=== PATIENT | female | born 1960 | race Caucasian/White ===

== ENCOUNTER 2023-07-12 14:46 | Emergency (ER) | payer OTHER, SELFPAY ==
[2023-07-12] VITALS (36 sets, daily range): BP systolic 96–222; BP diastolic 53–168; PULSE 110–119; RESP 20; TEMP 36.3; O2SAT 92–98
--- NOTE | ~2023-07-12 | CT_ITS ---
CT of the Abdomen and Pelvis: Indication: Abdominal pain Technique: 2.5 mm axial scans were obtained through the abdomen and pelvis following intravenous adm inistration of 100 cc of Omnipaque 350. Dose reduction technique was used on this scan by utilizing a utomated exposure control and iterative reconstruction technique. The dose-length product (DLP) was 1 379.98 mGy-cm. Findings: Scans through the lung bases are unremarkable. The liver, spleen, pancreas, adrenals and left kidney are within normal limits. Suspected small galls tones present. There is moderate right hydronephrosis, with staghorn type calculus the right renal pe lvis, with multiple additional stones at the right lower pole. No right ureteral stone evident. No ev idence of aortic aneurysm. No lymphadenopathy. No bowel obstruction or bowel wall thickening. There is no evidence to suggest acute appendicitis. Images through the pelvis were performed. Urinary bladder unremarkable. No adnexal mass evident. No a scites. Impression: Large staghorn type calculus of the right renal pelvis with numerous additional right lower pole genny l stones. Moderate right hydronephrosis. No other ureteral stone or ureteral dilatation evident. Reviewed, dictated and finalized at location . Impression: Large staghorn type calculus of the right renal pelvis with numerous additional right lower pole renal stones. Moderate right hydronephrosis. No other ureteral stone or ureteral dilatation e vident.
--- NOTE | 2023-07-12 15:01 | ECG_ITS ---
Measurements Intervals [place] Rate: 112 P: 39 MD: 120 QRS: 14 QRSD: 86 T: 48 QT: 330 QTc: 451 Interpretive Statements SINUS TACHYCARDIA POSSIBLE LEFT ATRIAL ENLARGEMENT DELAYED PRECORDIAL R/S TRANSITION VOLTAGE CRITERIA FOR LVH BORDERLINE ECG NO PREVIOUS ECG AVAILABLE FOR COMPARISON Electronically Signed On 07-12-2023 16:00:31 CDT by Agustín Arevalo D.O.
[2023-07-12 15:04] LABS: Appearance Urine Clear (Clear); Bilirubin Urine Negative (Negative); Color Urine Light Yellow (Yellow); Glucose Urine UA Negative (Negative); Ketones Urine Negative (Negative); Leukocyte Esterase Ur Trace LEU/UL (Negative); Nitrate Urine Negative (Negative); Protein Urine Negative (Negative); Urobilinogen Urine 0.2 mg/dL (0.2-1.0); pH Urine 7.5 (5.0-8.0)
[2023-07-12 15:09] LABS: Blood Urine Trace-Intact (Negative)
[2023-07-12 15:10] LABS: Add Urine Microscopic? YES; Bacteria Urine Trace /hpf; Squamous Epithelial Cell Urine Rare /hpf (Few)
--- NOTE | 2023-07-12 15:14 | ED.GENADULT ---
HPI - General Adult General Chief complaint: Urogenital-Female Stated complaint: possible UTI Time Seen by Provider: 07/12/23 15:01 History of Present Illness HPI narrative: Nesha is a 63F with a PMH of HTN and UTI that presented to the ED with a few days of worsening urinary frequency, suprapubic pain and bilateral flank pain as well as fatigue and nausea. She is very nervous about coming in. She denies chest pain and dyspnea. Related Data Home Medications Medication Instructions Recorded Confirmed No Home Medications 07/12/23 07/12/23 Allergies Allergy/AdvReac Type Severity Reaction Status Date / Time No Known Allergies Allergy Verified 07/12/23 14:58 Review of Systems Review of Systems: All systems reviewed & are unremarkable except as noted in HPI and below Exam Const: General: healthy appearing and no acute distress Nutritional Appearance: well nourished Orientation/consciousness: patient oriented x3 HENMT: Head: normal to inspection Ears: external ears normal Face/Nose/Sinus: Normal external nose present Face and sinus: normal facial exam Eyes: Conjunctivae: conjunctivae normal Pupils: Equal, round and reactive pupils present EOM: EOMs intact bilaterally Neck: Neck: normal visual inspection Chest: Chest palpation & inspection: normal inspection of the chest Resp: Effort & Inspection: normal respiratory effort Auscultation: clear to auscultation bilaterally Cardio: Rate: tachycardic Rhythm: regular rhythm GI: Other: suprapubic tenderness : Other: +bilateral cva tenderness Skin: General skin exam: normal color Rashes: no rashes Neuro: General: patient oriented x3 and moves all extremities Extrem: Other: no deformity Psych: Mental Status: mental status grossly normal Course Course Emergency Course: Ordered UA and labs as below but also ordered troponin, BNP and CMP given elevated BP and heart rate. EKG showed sinus tachycardia with a rate of 112, normal axis, no ST elevation/depression or ectopy Labs showed mild leukocytosis, mildly elevated CRP and BNP. UA showed only trace leuk esterase and no nitrites. CT of the Abdomen and Pelvis: Indication: Abdominal pain Technique:? 2.5 mm axial scans were obtained through the abdomen and pelvis following intravenous administration of 100 cc of Omnipaque 350. Dose reduction technique was used on this scan by utilizing automated exposure control and iterative reconstruction technique. The dose-length product (DLP) was 1379.98 mGy-cm. Findings:? Scans through the lung bases are unremarkable. The liver, spleen, pancreas, adrenals and left kidney are within normal limits. Suspected small gallstones present. There is moderate right hydronephrosis, with staghorn type calculus the right renal pelvis, with multiple additional stones at the right lower pole. No right ureteral stone evident. No evidence of aortic aneurysm.? No lymphadenopathy. No bowel obstruction or bowel wall thickening. There is no evidence to suggest acute appendicitis. Images through the pelvis were performed. Urinary bladder unremarkable. No adnexal mass evident. No ascites. Impression: Large staghorn type calculus of the right renal pelvis with numerous additional right lower pole renal stones. Moderate right hydronephrosis. No other ureteral stone or ureteral dilatation evident. I spoke with Dr. Huddleston of Urology that recommended admission at [facility] for possible stent placement I contacted [facility] for transfer. Dr. Ruano accepted the transfer. She recommended hydralazine if the BP remained to high. However the BP has dropped from 218 down to the 170s so will hold off for fear of dropping too quickly Vital Signs Vital signs: Vital Signs Temperature 97.4 F L 07/12/23 14:53 Pulse Rate 119 H 07/12/23 14:53 Respiratory Rate 20 07/12/23 14:53 Blood Pressure 218/103 H 07/12/23 14:53 Pulse Oximetry 97 07/12/23 14:53 Oxygen Deliver
[2023-07-12 15:31] LABS: Basophils Absolute Auto 0.07 K/mm3 (0.00-0.10); Basophils Percent Auto 0.5 % (0.0-1.0); Eosinophils Absolute Auto 0.16 K/mm3 (0.02-0.50); Eosinophils Percent Auto 1.2 % (1.0-6.0); Hematocrit 46.5 % (35.0-49.0); Immature Granulocyte Absolute 0.09 K/mm3 (0.00-0.00); Immature Granulocyte Percent A 0.7 % (0.0-0.0); Lymphocytes Absolute Auto 0.65 K/mm3 (1.10-4.50); Mean Corpuscular HGB Conc 32.3 g/dL (32.0-36.0); Mean Corpuscular Hemoglobin 27.1 pg (27.0-31.0); Mean Corpuscular Volume 83.9 fL (78.0-102.0); Mean Platelet Volume 10.1 fl (9.2-11.8); Monocytes Absolute Auto 0.71 K/mm3 (0.10-0.90); Monocytes Percent Auto 5.5 % (2.0-11.0); Neutrophils Absolute Auto 11.3 K/mm3 (1.7-7.2); Neutrophils Percent Auto 87.1 % (50.0-70.0); Platelet Count Result 346 K/mm3 (150-420); Red Blood Count 5.54 M/mm3 (4.20-5.40); Red Cell Distribution Width 14.5 % (11.6-14.4)
[2023-07-12 15:49] LABS: Lactic Acid Reflex 1.3 mmol/L (0.4-2.0)
[2023-07-12 15:57] LABS: Alanine Aminotransferase 17 U/L (14-59); Albumin Level 3.7 g/dL (3.4-5.0); Alkaline Phosphatase 127 U/L (46-116); Anion Gap 12 mmol/L (8-16); Aspartate Amino Transferase 19 U/L (15-37); Bilirubin,Total 0.8 mg/dL (0.00-1.00); Blood Urea Nitrogen 9 mg/dL (7-18); Calcium 9.2 mg/dL (8.5-10.1); Carbon Dioxide 27 mmol/L (21-32); Chloride 99 mmol/L (98-108); Estimated CRCL calculation 72 ml/min; Estimated Glomerular Filt Rate > 60; Glucose 113 mg/dL (70-99); NT Pro B Type Natriuretic Pept 415 pg/mL (0-125); Osmolality Calculated 285 mOsm/kg (285-295); Potassium 3.8 mmol/L (3.5-5.1); Sodium 138 mmol/L (136-145); Total Protein 8.4 g/dL (6.4-8.2); Troponin I 6.9 ng/L (0.00-60.4)
[2023-07-12] MEDS: amLODIPine BESYLATE 5 MG TABLET 10 MG PO (18:04)
--- NOTE | 2023-07-12 22:15 | PC.NURSE ---
Downtime occured approximately at 2099. [facility] denied transport @ 2124. [facility] ambulance service picked up the transport. Transport arrived at 2139. report given to Esperanza SANCHEZ @ [facility] 517
--- NOTE | 2023-07-15 12:38 | PC.NURSE ---
FINAL URINE CULTURE RESULTS: NO GROWTH. NO ACTION NEEDED.
--- NOTE | 2023-07-19 15:22 | PC.NURSE ---
Final blood culture report: no growth after 5 days. no further action or treatment needed.
== END 2023-07-12 21:45 | disposition short-term general hospital (02) ==
PROVIDERS: Emergency Provider Family Medicine
DX: N13.30 Unspecified hydronephrosis (principal); N20.0 Calculus of kidney; I16.0 Hypertensive urgency
CPT/HCPCS: 36415; 74177; 80053; 81001; 83605; 83880; 84484; 85025; 86140; 87040; 87086; 93005; 99285; A9270; Q9967

== ENCOUNTER 2023-07-26 12:33 | Outpatient (CLI) | payer OTHER, SELFPAY ==
[2023-07-26 13:12] LABS: Anion Gap 9 mmol/L (8-16); Blood Urea Nitrogen 15 mg/dL (7-18); Calcium 9.7 mg/dL (8.5-10.1); Carbon Dioxide 30 mmol/L (21-32); Chloride 100 mmol/L (98-108); Estimated Glomerular Filt Rate > 60; Glucose 102 mg/dL (70-99); Osmolality Calculated 288 mOsm/kg (285-295); Potassium 4.5 mmol/L (3.5-5.1); Sodium 139 mmol/L (136-145)
== END 2023-07-26 12:34 | disposition home or self-care (01) ==
LOC: CHSLAB 12:38
PROVIDERS: PCP Family Medicine
DX: E87.6 Hypokalemia (principal)
CPT/HCPCS: 36415; 80048

== ENCOUNTER 2023-08-02 14:45 | Outpatient (CLI) | payer OTHER, SELFPAY ==
[2023-08-02 15:11] LABS: Basophils Absolute Auto 0.12 K/mm3 (0.00-0.10); Basophils Percent Auto 0.7 % (0.0-1.0); Eosinophils Absolute Auto 0.29 K/mm3 (0.02-0.50); Eosinophils Percent Auto 1.6 % (1.0-6.0); Hematocrit 43.2 % (35.0-49.0); Hemoglobin 13.7 g/dL (12.0-15.0); Immature Granulocyte Absolute 0.08 K/mm3 (0.00-0.00); Immature Granulocyte Percent A 0.5 % (0.0-0.0); Lymphocytes Absolute Auto 2.68 K/mm3 (1.10-4.50); Lymphocytes Percent Auto 15.2 % (18.0-42.0); Mean Corpuscular HGB Conc 31.7 g/dL (32.0-36.0); Mean Corpuscular Hemoglobin 26.8 pg (27.0-31.0); Mean Corpuscular Volume 84.5 fL (78.0-102.0); Mean Platelet Volume 9.8 fl (9.2-11.8); Monocytes Absolute Auto 1.09 K/mm3 (0.10-0.90); Monocytes Percent Auto 6.2 % (2.0-11.0); Neutrophils Absolute Auto 13.4 K/mm3 (1.7-7.2); Neutrophils Percent Auto 75.8 % (50.0-70.0); Platelet Count Result 496 K/mm3 (150-420); Red Blood Count 5.11 M/mm3 (4.20-5.40); White Blood Count 17.6 K/mm3 (4.8-10.8)
[2023-08-02 15:35] LABS: Anion Gap 11 mmol/L (8-16); Blood Urea Nitrogen 11 mg/dL (7-18); Calcium 9.6 mg/dL (8.5-10.1); Carbon Dioxide 27 mmol/L (21-32); Chloride 101 mmol/L (98-108); Estimated Glomerular Filt Rate > 60; Glucose 96 mg/dL (70-99); Osmolality Calculated 287 mOsm/kg (285-295); Potassium 4.2 mmol/L (3.5-5.1); Sodium 139 mmol/L (136-145)
== END 2023-08-02 14:46 | disposition home or self-care (01) ==
LOC: CHSLAB 14:49
PROVIDERS: PCP Family Medicine; Visit Provider Family Medicine
DX: E87.6 Hypokalemia (principal); Z93.6 Other artificial openings of urinary tract status
CPT/HCPCS: 36415; 80048; 85025; 87077; 87086; 87088; 87186

== ENCOUNTER 2025-03-06 13:16 | Outpatient (CLI) | payer OTHER, SELFPAY ==
[2025-03-06 13:41] LABS: Basophils Percent Auto 0.7 % (0.0-1.0); Eosinophils Absolute Auto 0.33 K/mm3 (0.02-0.50); Eosinophils Percent Auto 2.2 % (1.0-6.0); Hematocrit 43.9 % (35.0-49.0); Hemoglobin 13.9 g/dL (12.0-15.0); Immature Granulocyte Percent A 0.7 % (0.0-0.0); Lymphocytes Percent Auto 16.4 % (18.0-42.0); Mean Corpuscular HGB Conc 31.7 g/dL (32-36); Mean Corpuscular Hemoglobin 27.1 pg (27.0-31.0); Mean Corpuscular Volume 85.7 fL (78.0-102.0); Mean Platelet Volume 9.9 fl (9.2-11.8); Monocytes Absolute Auto 0.79 K/mm3 (0.10-0.90); Monocytes Percent Auto 5.2 % (2.0-11.0); Neutrophils Absolute Auto 11.42 K/mm3 (1.70-7.20); Neutrophils Percent Auto 74.8 % (50.0-70.0); Platelet Count Result 414 K/mm3 (150-420); Red Blood Count 5.12 M/mm3 (4.20-5.40); Red Cell Distribution Width 14.5 % (11.6-14.4); White Blood Count 15.2 K/mm3 (4.8-10.8)
--- OUTSIDE RECORDS SUMMARY | 2025-03-06 14:29 | XMS_ITS | Clinical Summary ---
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 Gender Identity Not on file Sexual Orientation Not on file Plan of Treatment Health Maintenance Due Date Last Done Comments Cervical Cancer Screening Pa p Smear (Age 30 to 64) Every 3 Years 1960 Colorectal Cancer Screening Colonoscopy (10 Years) 1960 Annual Physical 1963 Hepatitis C 1978 Cervical Cancer Screening Pa p with HPV Testing (Age 30 to 64) Every 5 Years 1990 Cervical Cancer Screening with HPV 1990 Mammogram Screening 2000 Zoster Vaccines (1 of 2) 2010 Pneumococcal Vaccine: 50+ Ye ars (2 of 2 - PCV) 09/27/2018 09/27/2017 COVID-19 Vaccine (1 - 2023-2 5 season) 2024 DTaP, Tdap and Td Vaccines ( 2 - Td or Tdap) 09/27/2027 09/27/2017 RSV Immunization or 60+ Years (1 - 1-dose 75+ series) 2035 Meningococcal B Vaccine Aged Out No l onger eligible based on patient's age to complete this topic Meningococcal Vaccine Aged Out No lo arcadio eligible based on patient's age to complete this topic RSV Immunizations Under 20 Months Aged Out No longer eligible based on patient's age to complete this topic Insurance [employer] Member Subscriber Plan / Payer (Ef fective 2023-Present) Name:Nesha Taylor Relation to Subscriber:Self Name:Nesha Taylor Payer ID:[id number] (NAIC) Type:Not on file Address: [address] [address] Care Teams Housekeeping Lead Relationship Specialty Start Date End Date None, Provider, MD PCP - General UNKNOWN PHYSICIAN SPECIALTY 07/12/23
--- OUTSIDE RECORDS SUMMARY | 2025-03-06 14:29 | XMS_ITS | Clinical Summary ---
Author Organization [facility] Address [address] [place] [address] Care Team Providers Care Hydrogen Power Plant Manager Name Role Phone Ken Bowman MD Primary Care Provider [phone] Source Comments [facility],non-owned Affiliates and Associated Physician Practices is amultiple site organization consisting of ambulatory clinics and hospital sitesin [place], [place], [place] and [place]. This disclosure is being madepursuant to the Care Everywhere program and may not contain all information available regarding this patient. Last updated 18.[facility] Allergies No known active allergies Medications * Be aware that medications may not be up to date on this document. Alwaysverify current medications with the patient. amLODIPine Besylate-Celec oxib 10-200 MG TABS Take 10 mg by mouth 1 (one) time Active multivitamin daily tablet Take 1 (one) tablet by mouth daily with food Active acetaminophen (Tylenol) 325 MG tabletIndicati ons:Nephrolith iasis,Kidney stones Take 2 (two) tablets by mouth every 6 hours as needed for Fever or Pain Maximum allowable Acetaminophen amount = 4 Grams (4000 mg) / 24 hours. 3 Active Other Stone Stopper 1 capsule by mouth daily. Active Active Problems Problem Noted Date Diagnosed Date Staghorn calculus 09/15/2023 Social History Tobacco Use Types Packs/Day Years Used Date Smoking Tobacco: Never Smokeless Tobacco: Never Tobacco Cessation:Counseling Given: No Alcohol Use Standard Drinks/Week Comments Never 0 (1 standard drink = 0.6 oz pur e alcohol) AUDIT-C Answer Date Recorded Q1: How often do you have a drink containing alcohol? Never 09/15/2023 Q2: How many drinks containi ng alcohol do you have on a typical day when you are drinking? Patient does not drink Q3: How often do you have si x or more drinks on one occasion? Never 09/15/2023 Comments No Sex and Gender Information Value Date Recorded Sex Assigned at Not on file Legal Sex Female 2:57 PM CDT Gender Identity Not on file Sexual Orientation Not on file Last Filed Vital Signs Vital Sign Reading Time Taken Comments Blood Pressure 205/113 05/31/2024 10:45 AM CDT Pulse 105 05/31/2024 10:45 AM CDT Temperature 36.8 C (98.2 F) 05/31/2024 10:45 AM CDT Respiratory Rate 18 09/16/2023 11:48 AM ADAPTED PHYSICAL EDUCATION SPECIALIST Oxygen Saturation 96% 05/31/2024 10:45 AM CDT Inhaled Oxygen Concentration - - Weight 105.7 kg (233 lb) 05/31/2024 10:45 AM CDT Height 160 cm (5' 3 ) 05/31/2024 10:45 AM CDT Body Mass Index 41.27 05/31/2024 10:45 AM CDT Plan of Treatment Health Maintenance Due Date Last Done Comments COLOGUARD (AGES 45-75) - COL ON CA SCREENING 1960 COLON MONITORING 1960 COLONOSCOPY - COLON CA SCREENING 1960 CT COLONOGRAPHY - COLON CA SCREENING 1960 Colorectal Cancer Screening 1960 FIT - COLON CA SCREENING 1960 FLEX SIG - COLON CA SCREENING 1960 LIPID TESTING 1960 MAMMOGRAM 1960 PAP SMEAR 1960 HIV SCREENING 1975 HEPATITIS C SCREENING 07/04/1978 DTAP/TDAP/TD VACCINES (1 - Tdap) 1979 PNEUMOCOCCAL VACCINE 50+ (1 of 1 - PCV) 2010 ZOSTER VACCINE (1 of 2) 2010 Respiratory Syncytial Virus (RSV) Vaccine Pt: or over 60 yrs (1 - Risk 60-74 years 1-dose series) 2020 COVID-19 VACCINE (1 - 2023-2 5 season) 2024 DEPRESSION SCREENING 11/08/2024 INFLUENZA VACCINE (Season Ended) 2025 SCREENING FOR DIABETES 09/16/2026 3, 09/01/2023 HEPATITIS B VACCINE Aged Out No longe r eligible based on patient's age to complete this topic HIB VACCINE Aged Out No longer eligi ble based on patient's age to complete this topic HPV VACCINE Aged Out No longer eligi ble based on patient's age to complete this topic MENINGOCOCCAL (Group B) VACCINE SHARED DECISION-MAKING Aged Out No longer eligible based on patient's age to complete this topic MENINGOCOCCAL GROUPS A/C/Y/W VACCINE Aged Out No longer eligible b ased on patient's age to complete this topic Procedures Procedure Name Priority Date/Time Associated Diagnosis Comments BASIC METABOLIC PANEL (CALCIUM TOTAL) Routine 09/16/2023 12:53 AM ADAPTED PHYSICAL EDUCATION SPECIALIST Nephrolithiasis Kidney stones from Last 3 Months or Most Recently Relevant to Health Maintenance Results * (ABNORMAL) BASIC METABOLIC PANEL (CALCIUM TOTAL) (09/16/2023 12:53 AM ADAPTED PHYSICAL EDUCATION SPECIALIST) BUN 12 7 - 26 mg/dL 09/16/2023 1:59 AM [facility] Creatinine 0.59 0.56 - 0.96 mg/dL 09/16/2023 1:59 AM [facility] Sodium 142 136 - 145 mmol/L 09/16/2023 1:59 AM [facility] Potassium 4.0 3.5 - 4.5 mmol/L 09/16/2023 1:59 AM [facility] Chloride 108(H) 98 - 107 mmol/L 09/16/2023 1:59 AM [facility] CO2 24 22 - 29 mmol/L 09/16/2023 1:59 AM [facility] Glucose 135(H) 70 - 115 mg/dL 09/16/2023 1:59 AM [facility] Calcium 9.0 8.4 - 10.2 mg/dL 09/16/2023 1:59 AM [facility] Anion Gap 10 6 - 16 09/16/2023 1:59 AM [facility] BUN/Creatinine Ratio 20 7 - 23 09/16/2023 1:59 AM [facility]3] LABORATORY [facility] Osmolality Calculated 296(H) 275 - 295 mOsm/kg 09/16/2023 1:59 AM ADAPTED PHYSICAL EDUCATION SPECIALIST [facility]AT[facility] eGFR by CKD-EPI >90 >=90 mL/min/1.7 3 m2 09/16/2023 1:59 AM ADAPTED PHYSICAL EDUCATION SPECIALIST [facility] Blood BLOOD SPECIMEN / Unknown Lab Venipuncture / Unknown 09/16/2023 12:53 AM ADAPTED PHYSICAL EDUCATION SPECIALIST 09/16/2023 1:35 AM ADAPTED PHYSICAL EDUCATION SPECIALIST Jennifer Olmedo DO LAB - CHEMISTRY ORDERABLES Final Result [facility] [address] [place] [address], [facility] [phone] from Last 3 Months or Most Recently Relevant to Health Maintenance Insurance [facility] Advance Directives * Full Code (Latest Code Status on File) Date Activated Date Inactivated Comments 09/15/2023 9:29 PM 09/16/2023 6:37 PM Care Teams Hydrogen Power Plant Manager Relationship Specialty Start Date End Date Ken Bowman MD [address] [place] [address] [place] [id number] PCP - General Family Medicine 08/19/23
== END 2025-03-06 13:17 | disposition home or self-care (01) ==
LOC: CHSLAB 13:19
PROVIDERS: PCP Family Medicine; Visit Provider Family Medicine
DX: D72.829 Elevated white blood cell count, unspecified (principal)
CPT/HCPCS: 36415; 85025